=== PATIENT | female | born 1985 | race Caucasian/White ===

== ENCOUNTER 2021-08-12 07:53 | Outpatient (CLI) | payer OTHER ==
--- NOTE | 2021-08-12 13:40 | XRAY Report ---
PROCEDURE: Chest 2 View X-Ray INDICATIONS: ASTHMA EXACERBATION TECHNIQUE: 2 view(s) of the chest. COMPARISON: None. FINDINGS: Surgical changes and devices: None. Lungs and pleura: No pleural effusions or pneumothorax. Diffuse interstitial prominence with minimal perihilar airway thickening. No focal consolidation. Mediastinum: Mediastinal contours are normal. Heart size is normal. Bones and chest wall: No suspicious bony abnormalities. Soft tissues appear unremarkable. IMPRESSION: Diffuse interstitial prominence compatible with an infectious/inflammatory process and i s consistent with reported history of asthma exacerbation. No focal consolidation seen at this time. Reviewed by: Juan Jose Levy MD on 08/12/2021 12:[address] [facility] Approved by: Juan Jose Levy MD on 08/12/2021 12:[address] [facility] Station ID: [id number]
== END 2021-08-12 07:54 | disposition home or self-care (01) ==
LOC: DI.S 07:53
PROVIDERS: ATTEND Registered Nurse
DX: J45.901 Unspecified asthma with (acute) exacerbation (principal)

== ENCOUNTER 2021-12-29 08:00 | Outpatient (CLI) | payer OTHER ==
--- NOTE | 2021-12-29 11:20 | XRAY Report ---
PROCEDURE: Foot 3 View LT INDICATIONS: PAIN IN LEFT FOOT TECHNIQUE: 3 views of the foot were acquired. COMPARISON: None. FINDINGS: Bones: No acute fractures or dislocations. No suspicious bony lesions. Minimal degenerative change s are seen in the first metatarsophalangeal joint mild marginal spurring. Soft tissues: No suspicious soft tissue calcification. IMPRESSION: No acute osseous abnormality. If symptoms persist or there is continued clinical concern, further josias luation with MRI or CT may be helpful. Reviewed by: Julio Pina MD on 12/29/2021 11:18 AM PDT Approved by: Julio Pina MD on 12/29/2021 11:18 AM PDT Station ID: [id number]
== END 2021-12-29 23:59 | disposition home or self-care (01) ==
LOC: DI.S 08:00
PROVIDERS: ATTEND Physician Assistant
DX: M79.672 Pain in left foot (principal)

== ENCOUNTER 2022-07-15 08:39 | Outpatient (CLI) | payer OTHER ==
--- NOTE | 2022-07-15 16:20 | XRAY Report ---
PROCEDURE: Knee 3 View LT INDICATIONS: CONTUSION OF LEFT KNEE, INITIAL ENCOUNTER TECHNIQUE: 3 views of the left knee(s) were acquired. COMPARISON: None. FINDINGS: Bones: No fractures or dislocations. No suspicious bony lesions. Mild periarticular osteophyte for mation. Soft tissues: No joint effusion. No suspicious soft tissue calcifications. IMPRESSION: Osteoarthritis. No acute fracture. No osseous lesion. If symptoms and/or clinical suspic ion for pathology continue, further assessment with repeat plain films, or advanced imaging (e.g., CT , MRI, or bone scan) is recommended for further assessment. Reviewed by: Gustabo Curiel MD on 07/15/2022 4:18 PM PST Approved by: Gustabo Curiel MD on 07/15/2022 4:18 PM PST Station ID: [id number]
== END 2022-07-15 08:40 | disposition home or self-care (01) ==
LOC: DI.S 08:39
PROVIDERS: ATTEND Registered Nurse
DX: S80.02XA Contusion of left knee, initial encounter (principal); M17.12 Unilateral primary osteoarthritis, left knee

== ENCOUNTER 2023-08-19 09:34 | Outpatient (CLI) | payer OTHER ==
--- NOTE | 2023-08-19 11:58 | XRAY Report ---
PROCEDURE: Lumbar Spine 2-3V INDICATIONS: LOW BACK PAIN TECHNIQUE: 3 views of the lumbar spine were acquired. COMPARISON: None. FINDINGS: Bones: 5 [id number] vertebrae are present. There is normal bony alignment. No vertebral body compression fractures. No suspicious bony lesions. Soft tissues: Overlying bowel gas pattern is normal. No suspicious soft tissue calcifications. IMPRESSION: No compression deformities or intervertebral disc space narrowing. Reviewed by: Jasmin Win MD on 08/19/2023 11:57 AM [facility] Approved by: Jasmin Win MD on 08/19/2023 11:57 AM [facility] Station ID: [id number]
== END 2023-08-19 09:35 | disposition home or self-care (01) ==
LOC: DI.S 09:34
PROVIDERS: ATTEND Registered Nurse
DX: M54.50 Low back pain, unspecified (principal); G89.4 Chronic pain syndrome